=== PATIENT | male | born 1980 | race Caucasian/White ===

== ENCOUNTER 2019-03-18 19:33 | Emergency (ER) | payer OTHER ==
[~2019-03-18] VITALS: Ht 162.6 cm; Wt 82.1 kg
[2019-03-18 19:37] VITALS: Ht 162.6 cm; Wt 82.1 kg
[2019-03-18 21:13] VITALS: BP 154/77
== END 2019-03-18 21:13 | disposition home or self-care (01) ==
LOC: ED 19:33
DX: G89.29 Other chronic pain (principal); M54.9 Dorsalgia, unspecified
CPT/HCPCS: J1200; J7512